=== PATIENT | male | born 1975 | race Caucasian/White ===

== ENCOUNTER 2019-01-17 13:18 | Emergency (ER) | payer OTHER ==
[~2019-01-17] VITALS: Ht 170.2 cm; Wt 86.0 kg
[2019-01-17 13:22] VITALS: BP 131/68
[2019-01-17 13:35] LABS: GLUCOSE,POINT OF CARE 119 MG/DL (70-110)
== END 2019-01-17 15:31 | disposition left against medical advice (07) ==
LOC: EMS 13:21
DX: R10.12 Left upper quadrant pain (principal); Z53.21 Procedure and treatment not carried out due to patient leaving prior to being seen by health care provider